=== PATIENT | female | born 1935 | race Hispanic/Latino ===

== ENCOUNTER 2017-09-14 06:15 | Day surgery (SDC) | payer MEDICARE ==
[~2017-09-14 06:15] MED LIST: TETRACAINE 0.5% OD PRN
[2017-09-14] MEDS: AK-Dilate OD SCH ×3 (06:57→07:16)
[2017-09-14] MEDS: MYDRIACYL OD SCH ×3 (06:57→07:17)
[2017-09-14] MEDS: VIGAMOX OD SCH ×3 (06:57→07:17)
--- NOTE | 2017-09-14 07:41 | Anesthesia Consultation ---
Anesthesia Consult and Med Hx Date of service: 09/14/17 - Airway ROM Head & Neck: Adequate Mental/Hyoid Distance: Adequate Mallampati Class: Class II Intubation Access Assessment: Probably Good - Pre-Operative Health Status ASA Pre-Surgery Classification: ASA3 Proposed Anesthetic Plan: MAC - Pulmonary Hx Smoking: Yes (QUIT IN ) Hx Asthma: Yes COPD: Yes Home Oxygen Therapy: Yes (ON 3L OF O2 AT HOME) - Cardiovascular System Hx Hypertension: Yes (OVER 10 YEARS) - Central Nervous System Hx Back Pain: Yes Hx Psychiatric Problems: No - Endocrine Hx Renal Disease: Yes (STAGE 3) - Hematic Hx Anemia: Yes - Other Systems Hx Alcohol Use: No Hx Substance Use: No Hx Cancer: No Hx Obesity: Yes (BMI 35.8)
--- NOTE | 2017-09-14 07:42 | Anesthesia Day of Surgery ---
Anesthesia Day of Surgery - Day of Surgery Patient Examined: Yes Patient H&P Reviewed: Yes Patient is NPO: Yes Beta Blockers: Yes
[2017-09-14] MEDS ORDERED: VERSED ONE (07:58)
[2017-09-14] MEDS ORDERED: SUBLIMAZE ONE (07:59)
--- NOTE | 2017-09-14 08:36 | Operative Report ---
Operative Report Operative Report: PATIENT'S NAME: DATE OF : DATE OF SURGERY: 09/14/2017 PREOPERATIVE DIAGNOSIS: Cataract left eye POSTOPERATIVE DIAGNOSIS: Same OPERATIVE PROCEDURE: Phacoemulsification with intraocular lens implantation, left eye SURGEON: Kelli Phelps M.D. CLINICAL ATHLETIC INSTRUCTOR SURGEON: Dai Lens: AO60 24.0 D ANESTHESIA: Monitored anesthesia care in combination with topical and intracameral anesthesia because of the established specific risk of reflux, arrhythmias, or anxiety attacks associated with ocular manipulation, as well as the difficulty of the marketing sales representative to manage such potentially catastrophic events while simultaneously attempting to complete the surgical procedure and was deemed necessary for the patient's safety to have an Architecture Manager present during the procedure whenever possible. An Architecture Manager was utilized to regulate the intravenous sedation of the patient so the patient was cooperative yet not asleep in order for the patient to successfully maintain fixation of the eye on the operating light of the microscope. COMPLICATIONS: No blood loss. ALLERGIES: Ciprofloxacin shellfish PROGNOSIS: Excellent INDICATIONS FOR SURGERY: The patient is undergoing surgery in the hopes of eliminating or improving these visual difficulties. PROCEDURE: After arriving at the surgery center, the patient was given topical anesthetic and dilating drops, as noted in the record. The patient was then taken into the operating room and given more anesthetic drops. The eyelids , lashes, and lid margins were scrubbed with Betadine solution, and the patient was draped. The Nurse Architecture Manager administered IV sedation and monitored the patient during the procedure. The eye was then fixated with a 0.12, and a stab incision was made in the peripheral clear cornea into the anterior chamber. This was made on my left side. Viscoelastic was next used to fill the anterior chamber. The eye was once again fixated with the 0.12 forceps and a keratome was used make an incision in clear cornea peripherally on my right hand side temporally. The capsule forceps were used to open the central anterior capsule and then make a continuous round capsulotomy. Hydrodissection was carried out utilizing a cannula and balanced salt solution to delineate the cortical material from the capsule and the nucleus from the cortical material. The phaco tip was introduced into the eye and used to remove the anterior cortical material in the area of the capsulotomy. Then the phaco tip was buried into the nucleus, and a chopping instrument was introduced into the eye and used to provide countertraction in the nucleus between this instrument and the phaco tip fracturing the nucleus. This procedure was repeated multiple times, providing multiple small segments of the lens, and then the phaco tip was used to remove each of these segments. An I/A tip was then used to remove the remaining cortex. The anterior chamber was refilled with viscoelastic. An one-piece, acrylic intraocular lens was then placed into an inserting cartridge. The tip of the inserting cartridge was introduced into the keratome incision and into the anterior chamber. The implant was gently advanced through the cartridge and into the eye, where it unfolded, and both haptics were placed in the capsular bag, where it centered nicely and appeared to be well fixated. After placement of the intraocular lens, the I~and~A handpiece was placed back into the eye and used to remove the viscoelastic, including viscoelastic that was behind the optic of the intraocular lens. The anterior chamber was then filled with balanced salt solution, and hydration of the wound was used to cause swelling of the wound and more appropriate watertight closure. When the wound was found to be firm, the patient was asked to comment on how bright the light was. If there was no light perception at all or if the light was substantially dimmer than during the rest of the surgery, the amount of fluid in the eye was decompressed to lower the intraocular pressure until the patient could see the bright light again. This was done to avoid any damage or decreased blood flow to the optic nerve. MEDICATIONS APPLIED AT END OF SURGERY: One drop of Pred Forte and Vigamox The patient was given a shield to wear at night and was instructed not to rub or push on the eye. DISCHARGE SUMMARY: The patient was released in stable condition. The patient and those with the patient were given a written sheet of postoperative instructions and counseling on any abnormal laboratory studies. The patient is to see us tomorrow for follow-up in the office and is to call immediately for any difficulties. Kelli Phelps M.D. Date
--- NOTE | 2017-09-14 08:37 | Short Stay Summary ---
Short Stay Documentation Date of service: 09/14/17 - History H&P: obtained from office - Allergies and Medications Current Medications: Allergies ciprofloxacin [From Cipro] Allergy (Verified 09/13/17 14:25) Rash ciprofloxacin HCl [From Cipro] Allergy (Verified 09/13/17 14:25) Rash pentazocine lactate [From Talwin] Allergy (Verified 09/13/17 14:25) Hives SHELLFISH Allergy (Uncoded 01/03/14 10:28) Unknown Home Medications Medication Instructions Recorded Confirmed Last Taken Type ALBUTEROL Inhaler [Proair] 2 puff IH QID PRN 09/13/17 09/14/17 09/12/17 21:00 History ALBUTEROL NEB's [Proventil] 2.5 mg IH QID PRN 09/13/17 09/14/17 09/14/17 04:00 History Aspirin [Adult Low Dose Aspirin EC] 81 mg PO DAILY 09/13/17 09/14/17 09/13/17 09 :00 History Budesonide [Pulmicort Flexhaler] 1 inhalation IH BID 09/13/17 09/14/17 09/14/17 04:00 History Cholecalciferol (Vitamin D3) 2,000 unit PO BID 09/13/17 09/14/17 09/13/17 21:00 History [Vitamin D3 2,000 unit] Gabapentin [Neurontin] 300 mg PO Q8HR 09/13/17 09/14/17 09/14/17 04:00 History Losartan/Hydrochlorothiazide 1 each PO DAILY 09/13/17 09/14/17 09/14/17 04:00 History [Losartan-Hctz 100-25 mg Tab] Metoprolol [Lopressor] 100 mg PO DAILY 09/13/17 09/14/17 09/13/17 21:00 History Omeprazole 20 mg PO DAILY 09/13/17 09/14/17 09/14/17 04:00 History Pravastatin [Pravachol] 80 mg PO QHS 09/13/17 09/14/17 09/13/17 21:00 History Tiotropium [place] [Spiriva] 18 mcg IH DAILY 09/13/17 09/14/17 09/13/17 14:00 History amLODIPine [Norvasc] 5 mg PO DAILY 09/13/17 09/14/17 09/14/17 04:00 History Active Medications Acetazolamide (Diamox) 500 mg PO BID ONE Stop: 09/14/17 08:36 Moxifloxacin HCl (Vigamox) 1 drops OD Q5MIN TON Stop: 09/14/17 15:00 Last Admin: 09/14/17 07:17 Dose: 1 drops Phenylephrine HCl (Ak-Dilate) 1 drops OD Q5MIN TON Stop: 09/14/17 15:00 Last Admin: 09/14/17 07:16 Dose: 1 drops Prednisolone Acetate (Pred Forte 1%) 1 drops OS QID TON Tetracaine HCl (Tetracaine 0.5%) 1 drops OD Q5M PRN PRN Reason: Pain Stop: 09/14/17 15:00 Last Admin: 09/14/17 06:56 Dose: 1 drops Tropicamide (Mydriacyl) 1 drops OD Q5MIN TON Stop: 09/14/17 15:00 Last Admin: 09/14/17 07:17 Dose: 1 drops - Brief post op/procedure progress note Date of procedure: 09/14/17 Pre-op diagnosis: LEFT CATARACT Post-op diagnosis: same Procedure: Phacoemulsification with intraocular lens insertion left eye Anesthesia: MAC, local Surgeon: RENEE BIRD Estimated blood loss: none Pathology: none Condition: stable - Disposition Condition at discharge: Good - Discharge Diagnoses (1) Cataract Status: Acute Qualifiers: Cataract type: age-related Age-related cataract type: nuclear Laterality : left Qualified Code(s): H25.12 - Age-related nuclear cataract, left eye Short Stay Discharge Plan Follow up with: REID MARINO, PAC-C [Primary Care Provider] - 7 Days
[2017-09-14] MEDS ORDERED: DIAMOX PO NR (09:00)
[2017-09-14 09:37] VITALS: BP 156/56
[2017-09-14] MEDS ORDERED: PRED FORTE 1% OS SCH (10:00)
--- NOTE | 2017-09-14 12:39 | Post Anesthesia Evaluation ---
- Post Anesthesia Evaluation Patient Participated: Yes Airway Patent: Yes Stable Respiratory Function: Yes Nausea/Vomiting: No Temp > 96.8F: Yes Pain Manageable: Yes Adequeate Hydration: Yes Anesthesia Complications: No
== END 2017-09-14 09:30 | disposition home or self-care (01) ==
LOC: OR 06:15
DX: H26.9 Unspecified cataract (principal); J44.9 Chronic obstructive pulmonary disease, unspecified; I12.9 Hypertensive chronic kidney disease with stage 1 through stage 4 chronic kidney disease, or unspecified chronic kidney disease; N18.3 Chronic kidney disease, stage 3 (moderate); E66.9 Obesity, unspecified; Z68.35 Body mass index [BMI] 35.0-35.9, adult; Z95.1 Presence of aortocoronary bypass graft; Z79.899 Other long term (current) drug therapy; Z88.1 Allergy status to other antibiotic agents; Z91.013 Allergy to seafood
CPT/HCPCS: 66984; J2250; J3010; V2632

== ENCOUNTER 2017-10-05 07:35 | Day surgery (SDC) | payer MEDICARE ==
[2017-10-05] MEDS ORDERED: ZOFRAN IV PRN (09:50)
[2017-10-05] MEDS ORDERED: NARCAN 0.4 MG/1 ML IV PRN (09:50)
[2017-10-05] MEDS ORDERED: DILAUDID IV PRN (09:50)
--- NOTE | 2017-10-05 09:55 | Anesthesia Day of Surgery ---
Anesthesia Day of Surgery - Day of Surgery Patient Examined: Yes Patient H&P Reviewed: Yes Patient is NPO: Yes
--- NOTE | 2017-10-05 09:55 | Anesthesia Consultation ---
Anesthesia Consult and Med Hx Date of service: 10/05/17 (Patient wears Oxygen 24-7. Sedentary lifestyle 2/2 COPD) - Airway Anesthetic Teeth Evaluation: Poor (many missing teeth), Caps ROM Head & Neck: Inadequate (greatly decreased mouth opening) - Pulmonary Exam CTA: Yes - Cardiac Exam Cardiac Exam: RRR - Pre-Operative Health Status ASA Pre-Surgery Classification: ASA4 Proposed Anesthetic Plan: MAC - Pulmonary Hx Smoking: Yes (stopped in 1996. h/o 1ppd x 40 years) Hx Asthma: Yes Hx Respiratory Symptoms: Yes SOB: Yes COPD: Yes (3L O2) Home Oxygen Therapy: Yes (24-7) Hx Sleep Apnea: No - Cardiovascular System Hx Hypertension: Yes (OVER 10 YEARS took losartan this morning) Hx Coronary Artery Disease: Yes (CABG in 2008) - Central Nervous System Hx Seizures: No CVA: No Hx Back Pain: Yes Hx Psychiatric Problems: No - Gastrointestinal Hx Gastroesophageal Reflux Disease: Yes (controlled on oral medication. asymptomatic on empty stomach) - Endocrine Hx Renal Disease: Yes (STAGE 3) - Hematic Hx Anemia: Yes - Other Systems Hx Alcohol Use: No Hx Substance Use: No Hx Cancer: No Hx Obesity: Yes (BMI 35.8)
[2017-10-05] MEDS ORDERED: LACTATED RINGERS 1,000 ML IV SCH (10:00)
[2017-10-05] MEDS ORDERED: TETRACAINE 0.5% OD ONE (10:19)
[2017-10-05] MEDS: AK-Dilate OD SCH ×3 (10:28→10:58)
[2017-10-05] MEDS: MYDRIACYL OD SCH ×3 (10:29→10:59)
[2017-10-05] MEDS: VIGAMOX OD SCH ×3 (10:30→11:00)
[2017-10-05] MEDS ORDERED: VERSED ONE (11:07)
[2017-10-05] MEDS ORDERED: DIAMOX PO ONE (11:47)
--- NOTE | 2017-10-05 11:48 | Operative Report ---
Operative Report Operative Report: PATIENT'S NAME: DATE OF : DATE OF SURGERY: 10/05/2017 PREOPERATIVE DIAGNOSIS: Cataract right eye POSTOPERATIVE DIAGNOSIS: Same OPERATIVE PROCEDURE: Phacoemulsification with intraocular lens implantation, right eye SURGEON: Kelli Phelps M.D. INFORMATION COORDINATOR SURGEON: Dai Lens: ao60 23.5 D ANESTHESIA: Monitored anesthesia care in combination with topical and intracameral anesthesia because of the established specific risk of reflux, arrhythmias, or anxiety attacks associated with ocular manipulation, as well as the difficulty of the executive admin to manage such potentially catastrophic events while simultaneously attempting to complete the surgical procedure and was deemed necessary for the patient's safety to have an Grain Operations Manager present during the procedure whenever possible. An Grain Operations Manager was utilized to regulate the intravenous sedation of the patient so the patient was cooperative yet not asleep in order for the patient to successfully maintain fixation of the eye on the operating light of the microscope. COMPLICATIONS: No surgical complications No blood loss. ALLERGIES: Ciprofloxacin pENTAZOCINE PROGNOSIS: Excellent INDICATIONS FOR SURGERY: The patient is undergoing surgery in the hopes of eliminating or improving these visual difficulties. PROCEDURE: After arriving at the surgery center, the patient was given topical anesthetic and dilating drops, as noted in the record. The patient was then taken into the operating room and given more anesthetic drops. The eyelids , lashes, and lid margins were scrubbed with Betadine solution, and the patient was draped. The Nurse Grain Operations Manager administered IV sedation and monitored the patient during the procedure. The eye was then fixated with a 0.12, and a stab incision was made in the peripheral clear cornea into the anterior chamber. This was made on my left side. Viscoelastic was next used to fill the anterior chamber. The eye was once again fixated with the 0.12 forceps and a keratome was used make an incision in clear cornea peripherally on my right hand side temporally. The capsule forceps were used to open the central anterior capsule and then make a continuous round capsulotomy. Hydrodissection was carried out utilizing a cannula and balanced salt solution to delineate the cortical material from the capsule and the nucleus from the cortical material. The phaco tip was introduced into the eye and used to remove the anterior cortical material in the area of the capsulotomy. Then the phaco tip was buried into the nucleus, and a chopping instrument was introduced into the eye and used to provide countertraction in the nucleus between this instrument and the phaco tip fracturing the nucleus. This procedure was repeated multiple times, providing multiple small segments of the lens, and then the phaco tip was used to remove each of these segments. An I/A tip was then used to remove the remaining cortex. The anterior chamber was refilled with viscoelastic. An one-piece, acrylic intraocular lens was then placed into an inserting cartridge. The tip of the inserting cartridge was introduced into the keratome incision and into the anterior chamber. The implant was gently advanced through the cartridge and into the eye, where it unfolded, and both haptics were placed in the capsular bag, where it centered nicely and appeared to be well fixated. After placement of the intraocular lens, the I~and~A handpiece was placed back into the eye and used to remove the viscoelastic, including viscoelastic that was behind the optic of the intraocular lens. The anterior chamber was then filled with balanced salt solution, and hydration of the wound was used to cause swelling of the wound and more appropriate watertight closure. When the wound was found to be firm, the patient was asked to comment on how bright the light was. If there was no light perception at all or if the light was substantially dimmer than during the rest of the surgery, the amount of fluid in the eye was decompressed to lower the intraocular pressure until the patient could see the bright light again. This was done to avoid any damage or decreased blood flow to the optic nerve. MEDICATIONS APPLIED AT END OF SURGERY: One drop of Pred Forte and Vigamox The patient was given a shield to wear at night and was instructed not to rub or push on the eye. DISCHARGE SUMMARY: The patient was released in stable condition. The patient and those with the patient were given a written sheet of postoperative instructions and counseling on any abnormal laboratory studies. The patient is to see us tomorrow for follow-up in the office and is to call immediately for any difficulties. Kelli Phelps M.D. Date
--- NOTE | 2017-10-05 11:49 | Short Stay Summary ---
Short Stay Documentation Date of service: 10/05/17 - History H&P: obtained from office - Allergies and Medications Current Medications: Allergies ciprofloxacin [From Cipro] Allergy (Verified 09/22/17 09:40) Rash ciprofloxacin HCl [From Cipro] Allergy (Verified 09/22/17 09:40) Rash pentazocine lactate [From Talwin] Allergy (Verified 09/22/17 09:40) Hives SHELLFISH Allergy (Uncoded 09/22/17 09:40) Unknown Home Medications Medication Instructions Recorded Confirmed Last Taken Type ALBUTEROL Inhaler [Proair] 2 puff IH QID PRN 09/13/17 09/22/17 09/12/17 21:00 History ALBUTEROL NEB's [Proventil] 2.5 mg IH QID PRN 09/13/17 09/22/17 09/14/17 04:00 History Aspirin [Adult Low Dose Aspirin EC] 81 mg PO DAILY 09/13/17 09/22/17 09/13/17 09 :00 History Budesonide [Pulmicort Flexhaler] 1 inhalation IH BID 09/13/17 09/22/17 09/14/17 04:00 History Cholecalciferol (Vitamin D3) 2,000 unit PO BID 09/13/17 09/22/17 09/13/17 21:00 History [Vitamin D3 2,000 unit] Gabapentin [Neurontin] 300 mg PO Q8HR 09/13/17 09/22/17 09/14/17 04:00 History Losartan/Hydrochlorothiazide 1 each PO DAILY 09/13/17 09/22/17 09/14/17 04:00 History [Losartan-Hctz 100-25 mg Tab] Metoprolol [Lopressor] 100 mg PO DAILY 09/13/17 09/22/17 09/13/17 21:00 History Omeprazole 20 mg PO DAILY 09/13/17 09/22/17 09/14/17 04:00 History Pravastatin [Pravachol] 80 mg PO QHS 09/13/17 09/22/17 09/13/17 21:00 History Tiotropium [place] [Spiriva] 18 mcg IH DAILY 09/13/17 09/22/17 09/13/17 14:00 History amLODIPine [Norvasc] 5 mg PO DAILY 09/13/17 09/22/17 09/14/17 04:00 History Active Medications Acetazolamide (Diamox) 500 mg PO ONCE ONE Stop: 10/05/17 11:48 Hydromorphone HCl (Dilaudid) 0.25 mg IV Q10MIN PRN PRN Reason: Pain, Moderate (4-6) Stop: 10/05/17 18:00 Lactated Ringer's (Lactated Ringers) 1,000 mls @ 42 mls/hr IV DIRECT TON Last Admin: 10/05/17 10:09 Dose: 42 mls/hr Moxifloxacin HCl (Vigamox) 1 drops OD Q5MIN TON Stop: 10/05/17 23:59 Last Admin: 10/05/17 11:00 Dose: 1 drops Naloxone HCl (Narcan 0.4 Mg/1 Ml) 0.1 mg IV Q2MIN PRN PRN Reason: Res Rate </= 8 or 02 SAT < 92% Ondansetron HCl (Zofran) 4 mg IV ONCE PRN PRN Reason: Nausea And Vomiting Stop: 10/05/17 18:00 Phenylephrine HCl (Ak-Dilate) 1 drops OD Q5MIN [facility] Stop: 10/07/17 06:01 Last Admin: 10/05/17 10:58 Dose: 1 drops Prednisolone Acetate (Pred Forte 1%) 1 drops OD QID TON Tropicamide (Mydriacyl) 1 drops OD Q5MIN [facility] Stop: 10/07/17 06:01 Last Admin: 10/05/17 10:59 Dose: 1 drops - Brief post op/procedure progress note Date of procedure: 10/05/17 Pre-op diagnosis: right cataract Post-op diagnosis: same Procedure: Phacoemulsification with intraocular lens insertion right eye Anesthesia: MAC, local Surgeon: RENEE BIRD Estimated blood loss: none Pathology: none Condition: stable - Disposition Condition at discharge: Good Disposition: -01 TO HOME OR SELFCARE - Discharge Diagnoses (1) Cataract Status: Acute Qualifiers: Cataract type: age-related Age-related cataract type: nuclear Laterality : right Qualified Code(s): H25.11 - Age-related nuclear cataract, right eye Short Stay Discharge Plan Follow up with: JOSE LUIS SALAS MD [Primary Care Provider] - 7 Days
[2017-10-05] MEDS ORDERED: PRED FORTE 1% OD SCH (14:00)
[2017-10-05 17:16] VITALS: BP 159/60
== END 2017-10-05 12:51 | disposition home or self-care (01) ==
LOC: OR 07:35
DX: H26.9 Unspecified cataract (principal); I12.0 Hypertensive chronic kidney disease with stage 5 chronic kidney disease or end stage renal disease; N18.3 Chronic kidney disease, stage 3 (moderate); J44.9 Chronic obstructive pulmonary disease, unspecified; I25.10 Atherosclerotic heart disease of native coronary artery without angina pectoris; K21.9 Gastro-esophageal reflux disease without esophagitis; E66.9 Obesity, unspecified; Z68.35 Body mass index [BMI] 35.0-35.9, adult; Z95.5 Presence of coronary angioplasty implant and graft; Z88.1 Allergy status to other antibiotic agents; Z91.013 Allergy to seafood; Z91.048 Other nonmedicinal substance allergy status; Z79.82 Long term (current) use of aspirin; Z79.899 Other long term (current) drug therapy; Z87.891 Personal history of nicotine dependence; Z99.81 Dependence on supplemental oxygen
CPT/HCPCS: 66984; J2250; J7120; V2632